=== PATIENT | male | born 1950 | race Caucasian/White ===

== ENCOUNTER → 2019-08-07 | Outpatient (CLI) | payer OTHER, BC | LOC: HYPER 10:30 | PROVIDERS: ATTEND Emergency Medicine Emergency Medical Services | DX: I70.233 Atherosclerosis of native arteries of right leg with ulceration of ankle (principal); L97.312 Non-pressure chronic ulcer of right ankle with fat layer exposed; C40.21 Malignant neoplasm of long bones of right lower limb; C65.1 Malignant neoplasm of right renal pelvis; I10 Essential (primary) hypertension; Z95.828 Presence of other vascular implants and grafts; Z87.891 Personal history of nicotine dependence ==